=== PATIENT | male | born 1950 | race Caucasian/White ===

== ENCOUNTER → 2017-03-26 | Outpatient (CLI) | payer OTHER ==
[2016-02-11 11:37] VITALS: BP 156/78
== END ==
LOC: LAB 19:30
PROVIDERS: ATTEND Internal Medicine Gastroenterology
DX: K64.0 First degree hemorrhoids (principal)
CPT/HCPCS: 82270

== ENCOUNTER 2020-01-29 11:42 | Observation (INO) ==
[2020-01-29] MEDS ORDERED: REMDESIVIR (INVESTIGATIONAL DRUG GS-5734) 200 MG in NS 250 ML IV 250 ML IV NR (12:34)
[2020-01-29 13:12] LABS: BASOPHILS % (AUTO) 0.7 % (0.2-1.0); EOSINOPHILS % (AUTO) 0.8 % (0.9-2.9); HEMATOCRIT 42.1 % (42.0-54.0); HEMOGLOBIN 14.1 g/dL (13.5-18.0); LYMPHOCYTES % (AUTO) 33.3 % (21.0-51.0); MEAN CORPUSCULAR HEMOGLOBIN 30.7 pg (27.0-34.0); MEAN CORPUSCULAR HGB CONC 33.6 g/dL (33.0-35.0); MEAN CORPUSCULAR VOLUME 91.4 fL (80.0-100.0); MEAN PLATELET VOLUME 8.3 fL (7.4-11.0); MONOCYTES # (AUTO) 0.3 x10^3/uL (0.3-0.8); MONOCYTES % (AUTO) 11.3 % (0.0-13.0); NEUTROPHILS # (AUTO) 1.7 x10^3/uL (2.2-4.8); NEUTROPHILS % (AUTO) 53.9 % (42.0-75.0); PLATELET COUNT 137 X10^3/uL (150.0-450.0); RED BLOOD COUNT 4.61 X10^6/uL (4.7-6.0); RED CELL DISTRIBUTION WIDTH 13.7 % (11.6-16.5); WHITE BLOOD COUNT 3.1 X10^3/uL (3.6-10.0)
[2020-01-29] MEDS ORDERED: NS 1/2 1000 ML IV 1,000 ML IV ONE (13:26)
--- NOTE | 2020-01-29 13:33 | RAD ---
HISTORYPNEUMONIA COVID-19 positiveSTUDYCHEST, 1 VIEWCOMPARISONNoneFINDINGSThe trachea is midline. The cardiac silhouette is unremarkable . The lungs are clear without focal infiltrate or effusion. The bony thorax is unremarkable.IMPRESSIONNo acute cardiopulmonary disease.Electronically signed by: IESHA CARMONA (Jan 29, 2020 13:32:38)
[2020-01-29 13:36] LABS: ALANINE AMINOTRANSFERASE 45 Units/L (12-78); ALBUMIN 3.4 g/dL (3.4-5.0); ALKALINE PHOSPHATASE 56 Units/L (46-116); ASPARTATE AMINO TRANSFERASE 43 Units/L (15-37); BLOOD UREA NITROGEN 12 mg/dL (7-18); CALCIUM 8.7 mg/dL (8.5-10.1); CARBON DIOXIDE 32.4 mmol/L (21-32); CHLORIDE 103 mmol/L (98-107); CKMB % 1.7 % (<4); CREATINE KINASE 194 Units/L (39-308); CREATINE KINASE MB 3.2 ng/mL (0-4.0); CREATININE 0.96 mg/dL (0.70-1.30); LACTATE DEHYDROGENASE 201 Units/L (85-227); SODIUM 140 mmol/L (136-145); TOTAL PROTEIN 7.7 g/dL (6.4-8.2); TROPONIN I < 0.02 ng/mL (0-1.5); eGFR NON BLACK RACES > 60 (>60)
[2020-01-29 13:53] LABS: ABG BASE EXCESS 6.1 mmol/L (-2.0-2.0)
[2020-01-29 13:54] LABS: ABG ALLEN TEST POS; ABG HCO3 30.6 mmol/L (22-26)
[2020-01-29] MEDS: PROTONIX TAB 40 MG PO SCH (14:00)
[2020-01-29] MEDS: ROBITUSSIN DM PO SCH ×3 (14:00→20:25)
[2020-01-29] MEDS: TUSSIONEX PENNKINETIC SUSP PO SCH (14:00)
[2020-01-29] MEDS: NS 1/2 1000 ML IV 1,000 ML IV SCH (14:00)
[2020-01-29] MEDS: PEPCID TAB 20 MG PO SCH (14:00)
[2020-01-29] MEDS: ZINC SULFATE PO SCH (14:00)
[2020-01-29] MEDS: VSL#3 PO SCH (14:00)
[2020-01-29] MEDS: TESSALON PERLES PO SCH ×2 (14:08→21:17)
[2020-01-29 14:59] VITALS: BMI 22.4
[2020-01-29] MEDS: LEVAQUIN PREMIX IV 750 MG 750 MG/150 ML BAG IV SCH (15:04)
[2020-01-29] MEDS: PULMICORT NEB TX 0.5 MG NEB SCH ×2 (15:20→21:30)
[2020-01-29] MEDS: DUONEB 0.5 MG/3 MG (3 mL) NEB SCH ×3 (15:20→21:30)
[2020-01-29 17:06] LABS: CREATINE KINASE 167 Units/L (39-308); CREATINE KINASE MB 3.3 ng/mL (0-4.0); TROPONIN I < 0.02 ng/mL (0-1.5)
[2020-01-29] MEDS ORDERED: SOLU-Medrol 125 MG VIAL ONE (19:53)
[2020-01-29 21:03] LABS: CREATINE KINASE 142 Units/L (39-308); CREATINE KINASE MB 2.9 ng/mL (0-4.0); TROPONIN I < 0.02 ng/mL (0-1.5)
[2020-01-29] MEDS: SOLU-Medrol 40 MG VIAL IVP SCH (21:17)
[2020-01-30] MEDS: TUSSIONEX PENNKINETIC SUSP PO SCH ×2 (00:03→14:12)
[2020-01-30 04:58] LABS: BASOPHILS % (AUTO) 0.1 % (0.2-1.0); HEMATOCRIT 38.9 % (42.0-54.0); HEMOGLOBIN 12.9 g/dL (13.5-18.0); LYMPHOCYTES # (AUTO) 0.3 X10^3/uL (1.3-2.9); LYMPHOCYTES % (AUTO) 16.5 % (21.0-51.0); MEAN CORPUSCULAR HEMOGLOBIN 30.6 pg (27.0-34.0); MEAN CORPUSCULAR HGB CONC 33.2 g/dL (33.0-35.0); MEAN CORPUSCULAR VOLUME 92.1 fL (80.0-100.0); MONOCYTES # (AUTO) 0.1 x10^3/uL (0.3-0.8); NEUTROPHILS # (AUTO) 1.6 x10^3/uL (2.2-4.8); NEUTROPHILS % (AUTO) 80.4 % (42.0-75.0); PLATELET COUNT 119 X10^3/uL (150.0-450.0); RED BLOOD COUNT 4.22 X10^6/uL (4.7-6.0); RED CELL DISTRIBUTION WIDTH 13.9 % (11.6-16.5)
[2020-01-30] MEDS ORDERED: NS 1/2 1000 ML IV 1,000 ML IV ONE ×2 (05:01→19:47)
[2020-01-30 05:14] LABS: ALANINE AMINOTRANSFERASE 38 Units/L (12-78); ALBUMIN 2.9 g/dL (3.4-5.0); ALKALINE PHOSPHATASE 52 Units/L (46-116); ASPARTATE AMINO TRANSFERASE 40 Units/L (15-37); BLOOD UREA NITROGEN 16 mg/dL (7-18); CALCIUM 8.8 mg/dL (8.5-10.1); CARBON DIOXIDE 26.5 mmol/L (21-32); CHLORIDE 105 mmol/L (98-107); COR CA(FOR HYPOALB) 9.7 mg/dL (8.5-10.1); COR NA(FOR HYPERGLY) 143 mmol/L (136-145); CREATININE 0.84 mg/dL (0.70-1.30); SODIUM 141 mmol/L (136-145); TOTAL PROTEIN 7.1 g/dL (6.4-8.2); eGFR NON BLACK RACES > 60 (>60)
[2020-01-30] MEDS: NS 1/2 1000 ML IV 1,000 ML IV SCH ×3 (05:21→23:14)
[2020-01-30] MEDS: TESSALON PERLES PO SCH ×3 (05:22→21:09)
[2020-01-30] MEDS: SOLU-Medrol 40 MG VIAL IVP SCH ×3 (05:22→21:09)
[2020-01-30 05:37] LABS: PLATELET MORPHOLOGY COMMENT NORMAL (NORMAL)
[2020-01-30 05:51] LABS: ABG BASE EXCESS 3.3 mmol/L (-2.0-2.0); ABG HCO3 28.5 mmol/L (22-26)
[2020-01-30 05:54] LABS: ABG ALLEN TEST POS
[2020-01-30] MEDS: PROTONIX TAB 40 MG PO SCH (08:11)
[2020-01-30] MEDS: LEVAQUIN PREMIX IV 750 MG 750 MG/150 ML BAG IV SCH (08:11)
[2020-01-30] MEDS: VSL#3 PO SCH (08:11)
[2020-01-30] MEDS: REMDESIVIR (INVESTIGATIONAL DRUG GS-5734) 100 MG in NS 250 ML IV 250 ML IV SCH (08:11)
[2020-01-30] MEDS: ROBITUSSIN DM PO SCH ×5 (08:12→20:47)
[2020-01-30] MEDS: PEPCID TAB 20 MG PO SCH (08:12)
[2020-01-30] MEDS: ZINC SULFATE PO SCH (08:12)
--- NOTE | 2020-01-30 08:27 | DR.H&P ---
H&P - History & Physical for Day of: H&P Date: 01/29/20 - Chief Complaint Chief Complaint: COUGH, SOB, FATIGUE, WEAKNESS, COVID-19 POSITIVE - History of Present Illness History of Present Illness: IS A 69 YEAR OLD PATIENT OF OURS WHO PRESENTED TO THE HOSPITAL A DIRECT ADMISSION DUE TO COVID-19 AND BRONCHOPNEUMONIA. HE WAS SEEN IN THE OFFICE ON 01/28/20 DUE TO COMPLAINTS OF PERSISTENT FEVER, COUGH, SHORTNESS OF BREATH, FATIGUE, AND WEAKNESS. COUGH HAS BEEN NON-PRODUCTIVE. HE WAS SWABBED FOR COVID-19 AT THAT TIME AND PRESCRIBED AZITHROMYCIN 250MG PO DAILY X 5 DAYS. HIS COVID RESULTS RETURNED TODAY AND WERE POSITIVE. PATIENT CONTINUED TO COMPLAIN OF SYMPTOMS AND DENIED IMPROVEMENT DESPITE COMPLIANCE WITH MEDICATIONS. HIS PMH INCLUDES: CHRONIC EAR INFECTIONS, ANGINA, HYPERLIPIDEMIA, GERD, OSTEOARTHRITIS, RAYNAUDS SYNCROME, CHRONIC BACK PAIN, DEPRESSION, SKIN CANCER, LEFT KNEE SURGERY, LEFT SHOULDER SURGERY. ON EXAMINATION, HEART REGULAR IN RATE AND RHYTHM. BILATERAL LUNGS WERE NOTED WITH SCATTERED WHEEZING THROUGHOUT. ABDOMEN ROUND, SOFT, AND NON-TENDER WITH NORMAL BOWEL SOUNDS NOTED IN ALL QUADRANTS. HIS VITALS ON ARRIVAL WERE 99.3-74-21-93%RA-134/65. LABS WERE OBTAINED. ABNORMAL LAB VALUES INCLUDE THE FOLLOWING: WBC 3.1, RBC 4.61, PLT COUNT 137, CARBON DIOXIDE 32.4, GLUCOSE 104, AST 43, CRP 5.30. CARDIAC ENZYMES WITHIN NORMAL LIMITS. AN ABG WAS OBTAINED AND REVEALED: PH 7.460, PC02 43, P02 95, HC03 30.6, 02 SAT 98, BASE EXCESS 6.1, FI02 21.0. BLOOD CULTURES WERE SET UP. A CHEST XRAY WAS OBTAINED AND REVEALED: The trachea is midline. The cardiac silhouette is unremarkable . The lungs are clear without focal infiltrate or effusion. The bony thorax is unremarkable. EKG REVEALED: SINUS RHYTHM WITH HR 52. HE WAS PLACED ON NASAL CANNULA AT 2L/MIN. OXYGEN SATURATIONS INCREASED TO 99%. HE WAS STARTED ON 1/2NS AT 75 ML/HR, LEVAQUIN 750MG IV DAILY, REMDESIVIR 200MG IV X 1, THEN 100MG IV DAILY, DUONEBS QID, PULMICORT NEBS BID, TESSALON PERLES 200MG PO TID, ROBITUSSIN DM 10ML PO QID, SOLU-MEDROL 80MG IV Q8H, PROTONIX 40MG PO DAILY, AND PEPCID 20MG PO DAILY. OTHERWISE, WE PLAN TO FOLLOW UP WITH AM LABS, ABG, CHEST XRAY, AND CONTINUE TO MONITOR. TIME SPENT ON CLINICAL ASSESSMENT, REVIEWING LABS AND IMAGING, DECISION MAKING, AND DOCUMENTATION WAS GREATER THAN 74 MINUTES. - Past Medical History Past Medical History: Angina, Arthritis, Depression, Dyslipidemia, GERD Additional Medical History: SKIN CA, RAYNAUDS SYNDROME, CHRONIC BACK PAIN - Past Surgical History Surgical History: Ortho Surgery - Social History Does patient currently use any type of tobacco product: No Have you used tobacco products in the last 12 months: No Type of Tobacco Use: None Does any household member use tobacco: No Alcohol Use: None Drug Use: Prescription Drugs - Medications Home Medications: No Known Drug Allergies Allergy (Verified 01/24/19 11:14) CONTINUE taking the following medications acetaminophen-codeine 1 tab PO TID 01/29/20 [History] clonazepam 2 mg PO HS 01/29/20 [History] gabapentin 300 mg PO TID 01/29/20 [History] omeprazole 20 mg PO BID 01/29/20 [History] rosuvastatin 10 mg PO HS 01/29/20 [History] venlafaxine 75 mg PO DAILY 01/29/20 [History] - Review of Systems Constitutional: Fever, Weakness Eyes: No Symptoms Reported ENT: No Symptoms Reported Respiratory: See HPI, Cough, Shortness of Breath, SOB with Excertion, Wheezing Cardiovascular: No Symptoms Reported Gastrointestinal: No Symptoms Reported Genitourinary: No Symptoms Reported Musculoskeletal: No Symptoms Reported Skin: No Symptoms Reported Neurological: Weakness - Physical Exam Vital Signs: Temperature 97.6 F Pulse Rate [Left] 62 Pulse Rate 64 Respiratory Rate 35 Blood Pressure [Right Arm] 156/75 Blood Pressure 142/89 O2 Sat by Pulse Oximetry 99 Oriented: Normal Eyes: Normal Ear: Normal Nose: Normal Throat: Normal Respiratory: Wheezes Throughout Cardiovascular: Normal : Normal Auscultation: Bowel Sounds: Normal Palpation: Normal Tenderness: Normal Skin: Normal Musculoskeletal: Normal Psychiatric: Normal Mood Description: Calm Affect: Normal Speech Pattern: Clear - Assessment/Plan (1) COVID-19 Status: Acute Plan: ADMIT, 1/2NS AT 75 ML/HR, LEVAQUIN 750MG IV DAILY, REMDESIVIR 200MG IV X 1, THEN 100MG IV DAILY, DUONEBS QID, PULMICORT NEBS BID, TESSALON PERLES 200MG PO TID, ROBITUSSIN DM 10ML PO QID, SOLU-MEDROL 80MG IV Q8H, PROTONIX 40MG PO D AILY, AND PEPCID 20MG PO DAILY. SUPPLEMENTAL OXYGEN (2) Bronchopneumonia Status: Acute - Allergies Allergies/Adverse Reactions: Allergies Allergy/AdvReac Type Severity Reaction Status Date / Time No Known Drug Allergies Allergy Verified 01/24/19 11:14
[2020-01-30] MEDS: DUONEB 0.5 MG/3 MG (3 mL) NEB SCH ×4 (09:25→21:15)
[2020-01-30] MEDS: PULMICORT NEB TX 0.5 MG NEB SCH ×2 (09:25→21:15)
[2020-01-30] MEDS: EFFEXOR XR 75 MG CAP 24-HR PO SCH (10:21)
[2020-01-30] MEDS: TYLENOL #3 TAB (W/CODEINE) PO SCH ×3 (10:21→21:10)
[2020-01-30] MEDS: NEURONTIN CAP 300 MG PO SCH ×2 (14:12→21:09)
[2020-01-30] MEDS ORDERED: CRESTOR TAB 10 MG PO ONE (19:47)
[2020-01-30] MEDS ORDERED: KLONOPIN TAB 1 MG ONE (19:47)
[2020-01-30] MEDS ORDERED: CRESTOR TAB 10 MG PO SCH (21:00)
[2020-01-30] MEDS ORDERED: KLONOPIN TAB 1 MG PO SCH (21:00)
[2020-01-31] MEDS: TUSSIONEX PENNKINETIC SUSP PO SCH (00:18)
--- NOTE | 2020-01-31 05:07 | RAD ---
HISTORYSOBSTUDYAP [id number] normal heart size and contour with clear lungs, symmetrica lly inflated. There is no mediastinal, hilar or pleural abnormality.IMPRESSIONNo change; no acute jorge st findings.Electronically signed by: NNEKA FAIR (Jan 31, 2020 05:07:24)
[2020-01-31 05:12] LABS: BASOPHILS % (AUTO) 0.3 % (0.2-1.0); HEMATOCRIT 36.7 % (42.0-54.0); HEMOGLOBIN 12.5 g/dL (13.5-18.0); LYMPHOCYTES # (AUTO) 0.6 X10^3/uL (1.3-2.9); LYMPHOCYTES % (AUTO) 4.9 % (21.0-51.0); MEAN CORPUSCULAR HEMOGLOBIN 30.9 pg (27.0-34.0); MEAN CORPUSCULAR HGB CONC 33.9 g/dL (33.0-35.0); MEAN CORPUSCULAR VOLUME 90.9 fL (80.0-100.0); MEAN PLATELET VOLUME 8.9 fL (7.4-11.0); MONOCYTES # (AUTO) 0.5 x10^3/uL (0.3-0.8); MONOCYTES % (AUTO) 4.1 % (0.0-13.0); NEUTROPHILS % (AUTO) 90.7 % (42.0-75.0); PLATELET COUNT 151 X10^3/uL (150.0-450.0); RED BLOOD COUNT 4.04 X10^6/uL (4.7-6.0)
[2020-01-31 05:16] LABS: WHITE BLOOD COUNT 12.1 X10^3/uL (3.6-10.0)
[2020-01-31 05:20] LABS: ALANINE AMINOTRANSFERASE 31 Units/L (12-78); ALBUMIN 2.6 g/dL (3.4-5.0); ALKALINE PHOSPHATASE 46 Units/L (46-116); ASPARTATE AMINO TRANSFERASE 25 Units/L (15-37); BLOOD UREA NITROGEN 18 mg/dL (7-18); CALCIUM 8.6 mg/dL (8.5-10.1); CARBON DIOXIDE 29.5 mmol/L (21-32); CHLORIDE 107 mmol/L (98-107); COR CA(FOR HYPOALB) 9.7 mg/dL (8.5-10.1); COR NA(FOR HYPERGLY) 144 mmol/L (136-145); CREATININE 0.79 mg/dL (0.70-1.30); SODIUM 142 mmol/L (136-145); TOTAL PROTEIN 6.5 g/dL (6.4-8.2); eGFR NON BLACK RACES > 60 (>60)
[2020-01-31] MEDS: TYLENOL #3 TAB (W/CODEINE) PO SCH (05:37)
[2020-01-31] MEDS: SOLU-Medrol 40 MG VIAL IVP SCH (05:37)
[2020-01-31] MEDS: NEURONTIN CAP 300 MG PO SCH (05:37)
[2020-01-31] MEDS: TESSALON PERLES PO SCH (05:37)
[2020-01-31 05:47] LABS: BAND NEUTROPHILS % 8 % (0-10); PLATELET MORPHOLOGY COMMENT NORMAL (NORMAL)
[2020-01-31] MEDS: VSL#3 PO SCH (09:29)
[2020-01-31] MEDS: REMDESIVIR (INVESTIGATIONAL DRUG GS-5734) 100 MG in NS 250 ML IV 250 ML IV SCH (09:29)
[2020-01-31] MEDS: PEPCID TAB 20 MG PO SCH (09:29)
[2020-01-31] MEDS: LEVAQUIN PREMIX IV 750 MG 750 MG/150 ML BAG IV SCH (09:29)
[2020-01-31] MEDS: ZINC SULFATE PO SCH (09:30)
[2020-01-31] MEDS: EFFEXOR XR 75 MG CAP 24-HR PO SCH (09:30)
[2020-01-31] MEDS: PROTONIX TAB 40 MG PO SCH (09:30)
[2020-01-31 10:08] LABS: ABG BASE EXCESS 3.3 mmol/L (-2.0-2.0); ABG HCO3 27.8 mmol/L (22-26)
[2020-01-31] MEDS: ROBITUSSIN DM PO SCH (11:37)
[2020-01-31 12:25] VITALS: BP 146/77
[2020-01-31] MEDS: DUONEB 0.5 MG/3 MG (3 mL) NEB SCH ×2 (14:00→14:01)
[2020-01-31] MEDS: PULMICORT NEB TX 0.5 MG NEB SCH (14:01)
== END 2020-01-31 13:40 | disposition home or self-care (01) ==
LOC: ICU
PROVIDERS: ADMIT Internal Medicine; ATTEND Internal Medicine
DX: R53.1 Weakness; K21.9 Gastro-esophageal reflux disease without esophagitis; U07.1 COVID-19; E78.2 Mixed hyperlipidemia; R79.82 Elevated C-reactive protein (CRP); J12.89 Other viral pneumonia; Z86.79 Personal history of other diseases of the circulatory system; R06.02 Shortness of breath